=== PATIENT | male | born 1980 | race American Indian/Alaskan Native ===

== ENCOUNTER 2017-10-21 04:14 | Emergency (ER) | payer OTHER ==
[2017-10-21 04:30] VITALS: RESP 18; TEMP 98.2
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
[2017-10-21 05:41] VITALS: BP 128/76; PULSE 64; O2SAT 98
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
== END 2017-10-21 05:40 | disposition home or self-care (01) ==
LOC: C.ER 04:14
DX: S62.615A Displaced fracture of proximal phalanx of left ring finger, initial encounter for closed fracture (principal); V89.2XXA Person injured in unspecified motor-vehicle accident, traffic, initial encounter